=== PATIENT | male | born 1930 | race Caucasian/White ===

== ENCOUNTER 2017-11-17 23:26 | Observation (INO) | payer OTHER, MEDICARE ==
--- NOTE | 2017-11-17 23:28 | PDOC ---
History of Present Illness - General Stated Complaint: CHEST PAIN Time Seen by Provider: 11/17/17 23:28 History Source: Patient Exam Limitations: No Limitations - History of Present Illness Initial Comments: 11/17/17 23:41 This is an 87-year-old male with history of dementia so patient was a very poor by mouth or historian however patient is here with his son. As per son patient had some difficulty getting up this evening and was very unsteady on his feet. Son noted that patient was having some difficulty breathing and Allis so complained of chest discomfort/pain at the time. Patient doesn't recall the incident however son said this is not atypical for him as he does have dementia. Patient denies any discomfort in his chest or abdomen at this time. Patient denies any shortness of breath or any other complaints. Son says patient has a pacemaker but otherwise denies any history of a STEMI in the past. Patient denies any history of hypertension, high cholesterol, diabetes or coronary artery disease in his family. PAST MEDICAL HISTORY: no significant history PAST SURGICAL HISTORY: no significant history FAMILY HISTORY: no pertinant history SOCIAL HISTORY: Pt lives with family and is employed. MEDICATIONS: reviewed ALLERGIES: As per nursing notes Review of Systems General: No fevers or chills, no weakness, no weight loss HEENT: No change in vision. No sore throat,. No ear pain CardioVascular: + chest pain or +shortness of breath Respiratory:No cough, or wheezing. Gastrointestinal: no nausea, vomitting, diarrhea or constipation, No rectal bleeding Genitourinary: No dysuria, hematuria, or frequency Musculoskeletal: No joint or muscle pain or swelling Neurologic: No headache, vertigo, dizziness or loss of consciousness Psychiatric: nor depression Skin: No rashes or easy bruising Endocrine: no increased thirst or abnormal weight change Allergic: no skin or latex allergy All other systems reviewed and normal Exam: General: Well-nourished well-developed individual, no acute distress HEENT: Throat: Normal, tonsils normal, no erythema or exudate Neck: Supple, no meningeal signs, no lymphadenopathy Eyes::Pupils equal reactive and round, extraocular motion intact Chest: Nontender to palpation Cardiac: S1-S2 normal, regular rate and rhythm, no murmurs rubs or gallops Respiratory: Lungs clear to auscultation bilateral Abdomen: Soft, nondistended, normal bowel sounds, nontender to palpation diffusely Extremities: Warm, dry, no cyanosis, clubbing, or edema Skin: No rashes Neuro: Alert and oriented x3, CN II - XII intact, nonfocal exam with normal strength, normal sensation, normal reflexes, normal gait, Psych: Normal mood and affect Medical decision making: This is an 87-year-old male brought in by his son for evaluation of some chest discomfort with shortness of breath. Given patient's age she is in the high risk category for this to be cardiac in origin. We will obtain a workup including CBC, comp, cardiac profile Chest x-ray and EKG ordered We'll reassess and follow-up. We will give chewable aspirin 325 mg. 11/18/17 01:31 EKG shows a paced rhythm at 70 Blood work is unremarkable including a troponin of 0.02 which is detectable but indeterminate. Patient's heart scores 4. Assessment and plan: This is an 87-year-old male comes in complaining of some chest pain and shortness of breath. Patient heart scores for his troponin is detectable but indeterminate at 0.02. Patient will be admitted to an observation telemetry bed to rule out ACS. . Signout given to the admitting hospitalist, who accepts the patient. Discussed plan with the patient family at bedside, Patient and family aware of the plan and agree. Patient is clinically unchanged and stable. Past History - Past Medical History Allergies/Adverse Reactions: Allergies Allergy/AdvReac Type Severity Reaction Status Date / Time No Known Allergies Allergy Verified 03/03/16 09:03 Home Medications: Ambulatory Orders Ascorbate Calcium [Vitamin C] 500 mg PO DAILY 07/10/15 Cholecalciferol (Vitamin D3) [Vitamin D3 -] 1,000 unit PO DAILY 07/10/15 Multivit-Min/FA/Lycopen/Lutein [Centrum Silver Tablet] 1 each PO DAILY 07/10/15 Atorvastatin Ca [Lipitor] 10 mg PO HS 11/18/17 Rivaroxaban [Xarelto -] 15 mg PO DAILY 11/18/17 Anemia: No Asthma: No Cancer: No Cardiac Disorders: Yes (PACEMAKER - 01/23/16) CVA: No COPD: No CHF: No Dementia: No Diabetes: No GI Disorders: No Disorders: No HTN: No Hypercholesterolemia: No Liver Disease: No Seizures: No Thyroid Disease: No - Surgical History Appendectomy: Yes - Suicide/Smoking/Psychosocial Hx Smoking History: Former smoker Have you smoked in the past 12 months: No If you are a former smoker, when did you quit?: 40 YRS AGO Hx Alcohol Use: Yes (OCCAS) Drug/Substance Use Hx: No Substance Use Type: None Cardiac Specific PMH - Complaint Specific PMHX Pacemaker: No *Physical Exam - Vital Signs Last Vital Signs Temp Pulse Resp BP Pulse Ox 99.8 F H 63 18 115/66 94 L 11/18/17 00:38 11/18/17 00:38 11/18/17 00:38 11/18/17 00:38 11/18/17 00:38 Heart Score/ECG Review - History History: Slightly suspicious - Electrocardiogram EKG: Non specific repolarization disturbance - Age Age: >/= 65 - Risk Factors Based on the list above the patient has:: 1-2 risk factors - Troponin Troponin: </= normal limit - Score Heart Score - Total: 4 ED Treatment Course - LABORATORY CBC & Chemistry Diagram: 11/18/17 00:11 11/18/17 00:11 - ADDITIONAL ORDERS Additional order review: Laboratory Results 11/18/17 11/18/17 11/18/17 00:11 00:11 00:09 Sodium 142 Potassium 4.1 Chloride 106 Carbon Dioxide 29 Anion Gap 7 L BUN 21 H Creatinine 0.9 Creat Clearance w eGFR > 60 Random Glucose 95 Calcium 8.6 Total Bilirubin 0.7 AST 23 D ALT 28 Alkaline Phosphatase 74 Creatine Kinase Cancelled 106 Troponin I 0.02 D Total Protein 6.7 Albumin 3.5 11/18/17 00:11 RBC 4.88 MCV 88.7 MCHC 33.3 RDW 15.2 MPV 8.6 Neutrophils % 69.7 D Lymphocytes % 14.7 D Monocytes % 14.6 H Eosinophils % 0.3 D Basophils % 0.7 - RADIOLOGY Radiology Studies Ordered: Category Date Time Status CHEST X-RAY PORTABLE* [RAD] Stat Radiology 11/18/17 01:18 Taken - Medications Given in the ED: ED Medications Discontinued Medications Generic Name Dose Route Start Last Admin Trade Name Freq PRN Reason Stop Dose Admin Aspirin 325 mg 11/18/17 00:09 11/18/17 00:14 Asa - PO 11/18/17 00:10 325 mg ONCE ONE Administration *DC/Admit/Observation/Transfer Diagnosis at time of Disposition: Chest pain Qualifiers: Chest pain type: unspecified Qualified Code(s): R07.9 - Chest pain, unspecified - Discharge Dispostion Admit: Yes Decision to Admit order Date/Time: Decision to Admit Order Category Date Time Status Decision to Admit to Hospital Routine Admission 11/18/17 01:33 Active - Referrals - Patient Instructions - Post Discharge Activity
[2017-11-18] MEDS ORDERED: ASPIRIN 81 MG CHEWABLE TABLETS PO ONE (00:09)
[2017-11-18] MEDS ORDERED: ASPIRIN 81 MG CHEWABLE TABLETS ONE (00:13)
[2017-11-18 00:40] VITALS: BMI 25.0
[2017-11-18 01:02] LABS: BASO % 0.7 % (0-2.0); EOS % 0.3 % (0-4.5); HEMATOCRIT 43.2 % (35.4-49); HEMOGLOBIN 14.4 GM/dL (11.7-16.9); LYMPH % 14.7 % (8-40); MCH 29.5 pg (25.7-33.7); MCHC 33.3 g/dl (32.0-35.9); MEAN CELL VOLUME 88.7 fl (80-96); MEAN PLT VOLUME 8.6 fl (7.5-11.1); MONO % 14.6 % (3.8-10.2); NEUT % 69.7 % (42.8-82.8); PLATELET COUNT 229 K/MM3 (134-434); RBC 4.88 M/mm3 (4.00-5.60); RDW 15.2 % (11.9-15.9); WHITE BLOOD COUNT 5.5 K/mm3 (4.0-10.0)
[2017-11-18 01:23] LABS: ALBUMIN 3.5 g/dl (3.4-5.0); ALK PHOS 74 U/L (45-117); ANION GAP 7 (8-16); BILIRUBIN,TOTAL 0.7 mg/dL (0.2-1.0); BLOOD UREA NITROGEN 21 mg/dL (7-18); CALCIUM 8.6 mg/dL (8.5-10.1); CHLORIDE 106 mmol/L (98-107); CO2 29 mmol/L (21-32); CREATININE 0.9 mg/dL (0.7-1.3); GLUCOSE,RANDOM 95 mg/dL (74-106); POTASSIUM 4.1 mmol/L (3.5-5.1); SGOT/AST 23 U/L (15-37); SGPT/ALT 28 U/L (12-78); SODIUM 142 mmol/L (136-145); TOT PROT 6.7 g/dl (6.4-8.2)
--- NOTE | 2017-11-18 04:02 | HP ---
CHIEF COMPLAINT: chest pain PCP: Ramona; Cardiology: Kathia HISTORY OF PRESENT ILLNESS: This is an 87 year old male with a past medical history of dementia, arthritis, PPM placement who presented to the ED with report of CP earlier today. As per ED note, son reported pt was having difficulty getting up and was unsteady on his feet. Son noticed difficulty breathing and father reported chest pain. Pt has no recollection of having chest pain and denies pain at present. He stated "i'm pretty healthy" ER course was notable for: (1) troponin neg x 1 (2) ECG paced Recent Travel: son denies PAST MEDICAL HISTORY: dementia, arthritis PAST SURGICAL HISTORY: L inguinal hernia repair 2016 PPM Social History: Smoking: quit many years ago Alcohol: son reports one beer daily Drugs: son denies Family History: father in his 70s, comp of diverticulitis: kidney failure mother in her 80s, h/o angina Allergies No Known Allergies Allergy (Verified 03/03/16 09:03) HOME MEDICATIONS: 3 Medication Instructions Recorded Ascorbate Calcium [Vitamin C] 500 mg PO DAILY 07/10/15 Cholecalciferol (Vitamin D3) 1,000 unit PO DAILY 07/10/15 [Vitamin D3 -] Multivit-Min/FA/Lycopen/Lutein 1 each PO DAILY 07/10/15 [Centrum Silver Tablet] Atorvastatin Ca [Lipitor] 10 mg PO HS 11/18/17 Rivaroxaban [Xarelto -] 15 mg PO DAILY 11/18/17 REVIEW OF SYSTEMS CONSTITUTIONAL: Absent: fever, chills, diaphoresis, generalized weakness, malaise, loss of appetite, weight change HEENT: Absent: rhinorrhea, nasal congestion, throat pain, throat swelling, difficulty swallowing, mouth swelling, ear pain, eye pain, visual changes CARDIOVASCULAR: Present: chest pain Absent: syncope, palpitations, irregular heart rate, lightheadedness, peripheral edema RESPIRATORY: Present: shortness of breath Absent: cough, dyspnea with exertion, orthopnea, wheezing, stridor, hemoptysis GASTROINTESTINAL: Absent: abdominal pain, abdominal distension, nausea, vomiting, diarrhea, constipation, melena, hematochezia GENITOURINARY: Absent: dysuria, frequency, urgency, hesitancy, hematuria, flank pain, genital pain MUSCULOSKELETAL: Absent: myalgia, arthralgia, joint swelling, back pain, neck pain SKIN: Absent: rash, itching, pallor HEMATOLOGIC/IMMUNOLOGIC: Absent: easy bleeding, easy bruising, lymphadenopathy, frequent infections ENDOCRINE: Absent: unexplained weight gain, unexplained weight loss, heat intolerance, cold intolerance NEUROLOGIC: Absent: headache, focal weakness or paresthesias, dizziness, unsteady gait, seizure, mental status changes, bladder or bowel incontinence PSYCHIATRIC: Absent: anxiety, depression, suicidal or homicidal ideation, hallucinations. PHYSICAL EXAMINATION Vital Signs - 24 hr 3 11/18/17 11/18/17 00:38 03:23 Temperature 99.8 F H 98.0 F Pulse Rate 63 68 Respiratory 18 18 Rate Blood Pressure 115/66 126/69 O2 Sat by Pulse 94 L 95 Oximetry (%) GENERAL: Awake, alert, and fully oriented, in no acute distress. HEAD: Normal with no signs of trauma. EYES: Pupils equal, round and reactive to light, extraocular movements intact, sclera anicteric, conjunctiva clear. No lid lag. EARS, NOSE, THROAT: Ears normal, nares patent, oropharynx clear without exudates. Moist mucous membranes. NECK: Normal range of motion, supple without lymphadenopathy, JVD, or masses. LUNGS: Breath sounds equal, clear to auscultation bilaterally. No wheezes, and no crackles. No accessory muscle use. HEART: Regular rate and rhythm, normal S1 and S2 without murmur, rub or gallop. ABDOMEN: Soft, nontender, not distended, normoactive bowel sounds, no guarding, no rebound, no masses. No hepatomegaly or splenomegaly. MUSCULOSKELETAL: Normal range of motion at all joints. No bony deformities or tenderness. No CVA tenderness. UPPER EXTREMITIES: 2+ pulses, warm, well-perfused. No cyanosis. No clubbing. No peripheral edema. LOWER EXTREMITIES: 2+ pulses, warm, well-perfused. No calf tenderness. No peripheral edema right leg, 1+ left leg NEUROLOGICAL: Cranial nerves II-XII intact. Normal speech. Normal gait. PSYCHIATRIC: Cooperative. Good eye contact. Appropriate mood and affect. SKIN: Warm, dry, normal turgor, no rashes or lesions noted, normal capillary refill. Laboratory Results - last 24 hr 3 11/18/17 11/18/17 11/18/17 00:09 00:11 00:11 WBC 5.5 RBC 4.88 Hgb 14.4 Hct 43.2 MCV 88.7 MCH 29.5 MCHC 33.3 RDW 15.2 Plt Count 229 MPV 8.6 Neutrophils % 69.7 D Lymphocytes % 14.7 D Monocytes % 14.6 H Eosinophils % 0.3 D Basophils % 0.7 Sodium 142 Potassium 4.1 Chloride 106 Carbon Dioxide 29 Anion Gap 7 L BUN 21 H Creatinine 0.9 Creat Clearance w eGFR > 60 Random Glucose 95 Calcium 8.6 Total Bilirubin 0.7 AST 23 D ALT 28 Alkaline Phosphatase 74 Creatine Kinase 106 Troponin I 0.02 D Total Protein 6.7 Albumin 3.5 ECG atrial sensed ventricular paced rhythm with prolonged AV conduction vent rate 70, QTC 457 ASSESSMENT/PLAN: 87yM with PMH dementia, PPM, arthritis presented to the ED after reported episode CP at home. Chest pain - troponin neg x1, trend x 2 more - cardiac monitoring - consider cardiology consult - son unclear why pt is taking xarelto, he states it was prevention when the pacemaker was put in unilateral leg edema - duplex ordered DVT PPX - deferred as anticipated LOS <48h FEN - tolerating po - bmp in am - regular diet as tolerated Dispo: pt currently requires further observation for management of his emergent condition. Visit type - Emergency Visit Emergency Visit: Yes ED Registration Date: 11/18/17 Care time: The patient presented to the Emergency Department on the above date and was hospitalized for further evaluation of their emergent condition. - New Patient This patient is new to me today: Yes Date on this admission: 11/18/17 - Critical Care Critical Care patient: No
[2017-11-18 08:46] LABS: BASO % 0.2 % (0-2.0); EOS % 1.6 % (0-4.5); HEMOGLOBIN 14.2 GM/dl (11.7-16.9); LYMPH % 17.6 % (8-40); MCHC 33.9 g/dl (32.0-35.9); MEAN CELL VOLUME 88.4 fl (80-96); MEAN PLT VOLUME 7.9 fl (7.5-11.1); MONO % 19.3 % (3.8-10.2); NEUT % 61.3 % (42.8-82.8); PLATELET COUNT 218 K/MM3 (134-434); RBC 4.75 M/mm3 (4.00-5.60); RDW 14.3 % (11.9-15.9); WHITE BLOOD COUNT 4.5 K/mm3 (4.0-10.8)
[2017-11-18 09:00] LABS: ANION GAP 7 (8-16); BLOOD UREA NITROGEN 19 mg/dl (7-18); CALCIUM 8.5 mg/dl (8.4-10.2); CHLORIDE 105 mmol/L (98-107); CO2 27 mmol/L (22-28); CREATININE 0.8 mg/dl (0.6-1.3); GLUCOSE,RANDOM 88 mg/dl (74-106); PHOSPHOROUS 2.8 mg/dl (2.5-4.6); POTASSIUM 3.9 mmol/L (3.5-5.1); SODIUM 139 mmol/L (136-145)
[2017-11-18] MEDS ORDERED: MULTIVITAMINS THER W-MINERALS COMBO TABLET (FP) PO SCH (10:00)
[2017-11-18] MEDS ORDERED: CHOLECALCIFEROL (VITAMIN D3) 1,000 UNIT TABLET (FP) PO SCH (10:00)
[2017-11-18] MEDS ORDERED: ASCORBIC ACID 500 MG TABLET (FP) PO SCH (10:00)
[2017-11-18] MEDS ORDERED: RIVAROXABAN 15 MG TABLET PO SCH (10:00)
--- NOTE | 2017-11-18 13:16 | CON.CARD ---
Consult Consult Specialty:: Cardiology Referred by:: Yolanda López Reason for Consultation:: Chest pain/dyspnea - History of Present Illness Chief Complaint: Reported chest pain/dyspnea per son History of Present Illness: 87 yo male with dementia, arthritis, reported atrial fibrillation (on Xarelto), and recent pacemaker implantation (for SSS?), who presented to ED last evening with reported chest discomfort/dyspnea and difficulty getting up from his chair per son's report. He normally uses a cane to ambulated. Patient currently denies any complaints. ECG in ED demonstrated ventricular paced rhythm. Trops (- ) x3. Patient's automatic stacker is Dr. Stanislav Bae. - History Source History Provided By: Patient, Family Member (Son) Limitations to Obtaining History: Dementia - Past Medical History CODE ENFORCEMENT INSPECTOR: Yes: Dementia Cardio/Vascular: Yes: AFIB Musculoskeletal: Yes: Osteoarthritis - Past Surgical History Past Surgical History: Yes: Hernia Repair, Permanent Pacemaker Additional Surgical History: Left inguinal hernia repair 2015 - Alcohol/Substance Use Hx Alcohol Use: Yes (OCCAS) Number of Drinks Daily: 1 History of Substance Use: reports: None - Smoking History Smoking history: Former smoker Have you smoked in the past 12 months: No If you are a former smoker, when did you quit?: 40 years ago Home Medications - Allergies Allergies/Adverse Reactions: Allergies Allergy/AdvReac Type Severity Reaction Status Date / Time No Known Allergies Allergy Verified 03/03/16 09:03 - Home Medications Home Medications: Ambulatory Orders Ascorbate Calcium [Vitamin C] 500 mg PO DAILY 07/10/15 Cholecalciferol (Vitamin D3) [Vitamin D3 -] 1,000 unit PO DAILY 07/10/15 Multivit-Min/FA/Lycopen/Lutein [Centrum Silver Tablet] 1 each PO DAILY 07/10/15 Atorvastatin Ca [Lipitor] 10 mg PO HS 11/18/17 Rivaroxaban [Xarelto -] 15 mg PO DAILY 11/18/17 Family Disease History - Family Disease History Family Disease History: Heart Disease: Mother Review of Systems - Review of Systems Constitutional: reports: No Symptoms Eyes: reports: No Symptoms HENT: reports: No Symptoms Neck: reports: No Symptoms Cardiovascular: reports: Chest Pain, Shortness of Breath Respiratory: reports: SOB Gastrointestinal: reports: No Symptoms Neurological: reports: Unsteady Gait Endocrine: reports: No Symptoms Hematology/Lymphatic: reports: No Symptoms Vital Signs: Vital Signs Temperature 97.8 F 11/18/17 06:17 Pulse Rate 66 11/18/17 06:17 Respiratory Rate 19 11/18/17 06:17 Blood Pressure 130/65 11/18/17 06:17 O2 Sat by Pulse Oximetry (%) 95 11/18/17 09:09 Constitutional: Yes: Well Nourished, No Distress Eyes: Yes: Conjunctiva Clear, EOM Intact HENT: Yes: Atraumatic, Normocephalic Respiratory: Yes: CTA Bilaterally Gastrointestinal: Yes: Normal Bowel Sounds, Soft Cardiovascular: Yes: Regular Rate and Rhythm JVD: No Carotid Bruit: No PMI: Non-Displaced Heart Sounds: Yes: S1, S2 Murmur: No: Systolic Murmur Musculoskeletal: Yes: WNL Extremities: Yes: WNL Edema: No Peripheral Pulses WNL: Yes Neurological: Yes: Alert, Cran Nerves II-XII Intact, Unsteady Gait ...Motor Strength: WNL Psychiatric: Yes: Alert - Other Data Labs, Other Data: CBC, BMP 11/18/17 07:00 11/18/17 07:00 Troponin, BNP 11/18/17 11/18/17 11/18/17 00:09 07:00 12:25 Troponin I 0.02 D 0.03 0.03 Troponin, BNP 11/18/17 11/18/17 11/18/17 00:09 07:00 12:25 Troponin I 0.02 D 0.03 0.03 Echo: Report Reviewed (11/18/17: Normal LV size and systolic funciton. LVEF 60-65 %. Grade I diastolic dysfunction. AV sclerosis. Mild MAC. Mild MR. Mild TR.), Image Reviewed Imaging - Results Chest X-ray: Report Reviewed (11/18/17: No acute process. Pacemaker.), Image Reviewed Assessment/Plan 87 yo male with dementia, reported atrial fibrillation (on Xarelto), and recent pacemaker implantation (for SSS?), who presented to ED last evening with reported chest discomfort/dyspnea and difficulty getting up from his chair per son's report. Currently denies any complaints. ECG ventricular paced rhythm. Trops (-) x3. Echo showed no regional WM abnormalities with LVEF 60-65% and no clinically significant valvular disease. RECS: No further inpatient cardiac evaluation is indicated at this time. Patient may be discharged from cardiac standpoint. Patient should follow-up with his automatic stacker, Dr. Stanislav Bae, in 1-2 weeks. He would benefit for Lexiscan nuclear stress test for ischemic evaluation/risk stratification. Will see prn. Please call with questions.
[2017-11-18 14:16] VITALS: BP 129/64; PULSE 69; TEMP 97.6
--- NOTE | 2017-11-18 14:38 | DS ---
Physical Exam: SUBJECTIVE: Patient seen and examined at bedside. OBJECTIVE: Vital Signs Period Temp Pulse Resp BP Sys/Bustos Pulse Ox Last 24 Hr 97.6 F-99.8 F 63-69 18-19 115-130/64-69 94-96 PHYSICAL EXAM GENERAL: The patient is awake, alert. LUNGS: Breath sounds equal, clear to auscultation bilaterally, no wheezes, no crackles, no accessory muscle use. HEART: Regular rate and rhythm, S1, S2 ABDOMEN: Soft, nontender, nondistended, normoactive bowel sounds, no guarding, no rebound EXTREMITIES: 2+ pulses, warm, well-perfused, bilateral lower extremity 1-2+ edema NEUROLOGICAL: Cranial nerves II through XII grossly intact. Normal speech, gait not observed. LABS Laboratory Results - last 24 hr 11/18/17 11/18/17 11/18/17 00:09 00:11 00:11 WBC 5.5 RBC 4.88 Hgb 14.4 Hct 43.2 MCV 88.7 MCH 29.5 MCHC 33.3 RDW 15.2 Plt Count 229 MPV 8.6 Neutrophils % 69.7 D Lymphocytes % 14.7 D Monocytes % 14.6 H Eosinophils % 0.3 D Basophils % 0.7 Sodium 142 Potassium 4.1 Chloride 106 Carbon Dioxide 29 Anion Gap 7 L BUN 21 H Creatinine 0.9 Creat Clearance w eGFR > 60 Random Glucose 95 Calcium 8.6 Phosphorus Magnesium Total Bilirubin 0.7 AST 23 D ALT 28 Alkaline Phosphatase 74 Creatine Kinase 106 Creatine Kinase Index CK-MB (CK-2) Troponin I 0.02 D Total Protein 6.7 Albumin 3.5 11/18/17 11/18/17 11/18/17 00:11 07:00 07:00 WBC 4.5 RBC 4.75 Hgb 14.2 Hct 42.0 MCV 88.4 MCH 30.0 MCHC 33.9 RDW 14.3 Plt Count 218 MPV 7.9 Neutrophils % 61.3 Lymphocytes % 17.6 Monocytes % 19.3 H Eosinophils % 1.6 Basophils % 0.2 Sodium 139 Potassium 3.9 Chloride 105 Carbon Dioxide 27 Anion Gap 7 L BUN 19 H Creatinine 0.8 Creat Clearance w eGFR Random Glucose 88 Calcium 8.5 Phosphorus 2.8 Magnesium 2.0 Total Bilirubin AST ALT Alkaline Phosphatase Creatine Kinase Cancelled 197 Creatine Kinase Index 2.1 CK-MB (CK-2) 4.3 H Troponin I Total Protein Albumin 11/18/17 11/18/17 11/18/17 07:00 07:00 12:25 WBC RBC Hgb Hct MCV MCH MCHC RDW Plt Count MPV Neutrophils % Lymphocytes % Monocytes % Eosinophils % Basophils % Sodium Potassium Chloride Carbon Dioxide Anion Gap BUN Creatinine Creat Clearance w eGFR Random Glucose Calcium Phosphorus Magnesium Total Bilirubin AST ALT Alkaline Phosphatase Creatine Kinase Creatine Kinase Index CK-MB (CK-2) Troponin I 0.03 0.03 Total Protein Albumin HOSPITAL COURSE: Date of Admission:11/18/17 Date of Discharge: 11/18/17 ECG ventricular paced troponins neg x 3 Echo: LV systolic function normal, impaired relaxation, mild cLVH; RV normal; mild MR; mild TR US LLE: negative DVT CXR: unremarkable Minutes to complete discharge: 35 Discharge Summary Reason For Visit: CHEST PAIN Current Active Problems Chest pain (Acute) Condition: Improved - Instructions Diet, Activity, Other Instructions: It is recommended you follow up with your sales operations specialist, Dr. Stanislav Bae, in 1- 2 weeks. You should tell him of your stay in the hospital and that an echocardiagram was performed which showed a mild degree of diastolic dysfunction. Return to the emergency department for any new or worsening symptoms. Referrals: Stanislav Bae [Non Staff, Medical] - Disposition: HOME - Home Medications Comprehensive Discharge Medication List: Ambulatory Orders Ascorbate Calcium [Vitamin C] 500 mg PO DAILY 07/10/15 Cholecalciferol (Vitamin D3) [Vitamin D3 -] 1,000 unit PO DAILY 07/10/15 Multivit-Min/FA/Lycopen/Lutein [Centrum Silver Tablet] 1 each PO DAILY 07/10/15 Atorvastatin Ca [Lipitor] 10 mg PO HS 11/18/17 Rivaroxaban [Xarelto -] 15 mg PO DAILY 11/18/17 This patient is new to me today: Yes Date on this admission: 11/18/17 Emergency Visit: Yes ED Registration Date: 11/18/17 Care time: The patient presented to the Emergency Department on the above date and was hospitalized for further evaluation of their emergent condition. Critical Care patient: No - Discharge Referral Referred to [facility] Med [facility] No
[2017-11-18] MEDS ORDERED: ATORVASTATIN CA 10 MG TABLET (FP) PO SCH (22:00)
--- NOTE | 2017-11-21 19:55 | EKG ---
Test Reason : Blood Pressure : / mmHG Vent. Rate : 070 BPM Atrial Rate : 070 BPM P-R Int : 220 ms QRS Dur : 110 ms QT Int : 424 ms P-R-T Axes : 033 -52 002 degrees QTc Int : 457 ms POOR DATA QUALITY, INTERPRETATION MAY BE ADVERSELY AFFECTED Atrial-sensed ventricular-paced rhythm with prolonged AV conduction ABNORMAL ECG NO PREVIOUS ECGS AVAILABLE Confirmed by MILDRED LOPEZ MD ([id number]) on 11/21/2017 7:55:22 PM Referred By: MD SPICER Confirmed By:MILDRED LOPEZ MD
== END 2017-11-18 15:37 | disposition home or self-care (01) ==
LOC: FER 23:26 → FM/S 11-18 02:05
PROVIDERS: ADMIT Internal Medicine; ATTEND Nurse Practitioner Family
DX: R07.9 Chest pain, unspecified (principal); I48.91 Unspecified atrial fibrillation; F03.90 Unspecified dementia, unspecified severity, without behavioral disturbance, psychotic disturbance, mood disturbance, and anxiety; R60.0 Localized edema; M19.90 Unspecified osteoarthritis, unspecified site; Z95.0 Presence of cardiac pacemaker; Z87.891 Personal history of nicotine dependence; Z79.01 Long term (current) use of anticoagulants
CPT/HCPCS: 36415; 71045-TC-FY; 80048; 80053; 82550; 82553; 83735; 84100; 84484; 85025; 93005; 93306-TC; 93971-TC; 97116-GP; 97161-GP; 99285-25; G0378